=== PATIENT | male | born 1985 ===

== ENCOUNTER 2017-02-27 09:38 | Outpatient (CLI) | payer OTHER ==
[~2017-02-27] VITALS: Ht 152.4 cm; Wt 77.1 kg
== END 2017-02-27 10:05 | disposition home or self-care (01) ==
LOC: OFIC 805 09:38
DX: J32.8 Other chronic sinusitis (principal); J34.2 Deviated nasal septum; J31.0 Chronic rhinitis; H90.3 Sensorineural hearing loss, bilateral

== ENCOUNTER 2017-02-27 13:13 | Outpatient (CLI) | payer OTHER | END 2017-02-27 13:37 | disposition home or self-care (01) | LOC: TOM 13:13 | DX: J34.2 Deviated nasal septum (principal); J32.8 Other chronic sinusitis ==

== ENCOUNTER 2017-11-06 09:54 | Outpatient (CLI) | payer OTHER ==
[~2017-11-06] VITALS: Ht 152.4 cm; Wt 77.1 kg
== END 2017-11-06 10:15 | disposition home or self-care (01) ==
LOC: OFIC 805 09:54
DX: J34.2 Deviated nasal septum (principal); J31.0 Chronic rhinitis

== ENCOUNTER 2018-12-17 14:42 | Emergency (ER) | payer OTHER ==
[~2018-12-17] VITALS: Ht 180.3 cm; Wt 74.8 kg
== END 2018-12-17 17:21 | disposition home or self-care (01) ==
LOC: ER 14:42
DX: J11.1 Influenza due to unidentified influenza virus with other respiratory manifestations (principal)

== ENCOUNTER 2021-04-26 23:38 | Emergency (ER) | payer OTHER ==
[~2021-04-26] VITALS: Ht 180.3 cm; Wt 83.0 kg
[2021-04-27] MEDS ORDERED: DUI500 PO (02:37)
[2021-04-27] MEDS ORDERED: BACTRIM DS TAB1 EACH PO (02:37)
[2021-04-27] MEDS ORDERED: KETO10TA2 PO (02:40)
[2021-04-27] MEDS ORDERED: ACETAMINOPHEN650 M2 (04:09)
== END 2021-04-27 03:01 | disposition home or self-care (01) ==
LOC: ER 23:38
DX: L05.91 Pilonidal cyst without abscess (principal)